=== PATIENT | female | born 1945 | race Caucasian/White ===

== ENCOUNTER → 2020-06-15 | Outpatient (CLI) | payer MEDICARE ==
[~2020-06-15] MED LIST: ACTOS15 MG PO; LEVOTHYROXINE50 MCG PO; METFORMIN HCL500 MG PO; METOPROLOL-HCT1 EAC1 PO; NAPROXEN250 MG PO; OMEPRAZOLE40 MG PO; SERTRALINE HCL100 MG PO; SIMVASTATIN20 MG PO; ULTRAM 50MG50 MG PO
== END ==
LOC: CARD 13:36
PROVIDERS: ATTEND Family Medicine
DX: I73.89 Other specified peripheral vascular diseases (principal)
CPT/HCPCS: 93925; 93970

== ENCOUNTER → 2021-02-06 | Outpatient (CLI) | payer MEDICARE | LOC: RAD 15:24 | PROVIDERS: ATTEND Family Medicine | DX: M54.5 Low back pain (principal); M25.561 Pain in right knee; M25.562 Pain in left knee; M25.551 Pain in right hip; M25.552 Pain in left hip | CPT/HCPCS: 72110; 73523 ==